=== PATIENT | female | born 1970 ===

== ENCOUNTER 2017-08-05 22:43 | Observation (INO) | payer MEDICAID ==
[2017-08-05 22:54] VITALS: BMI 25.4
--- NOTE | 2017-08-05 23:01 | ED PDOC ---
Arrival/HPI - General Chief Complaint: Syncope Time Seen by Provider: 08/05/17 22:48 Historian: Patient - History of Present Illness Narrative History of Present Illness (Text): 08/05/17 23:00 Nuzhat Sanches is a 46 year old female, whose past medical history includes hypertension, who presents to the Emergency department brought in by EMS accompanied by family status post syncopal episodes prior to arrival. Patient states she went to bathroom, began feeling dizzy when she got up from the toilet, and lost consciousness. states patient fell to the ground and was unconscious for a few minutes. Patient reports she recently underwent a procedure to "remove silicone" from her vagina earlier today. Patient denies any fever, chills, chest pain, shortness of breath, nausea, vomiting, diarrhea, urinary symptoms, back pain, neck pain, headache, focal neurological deficits, or any other complaints. Symptom Onset: Gradual Symptom Course: Unchanged Activities at Onset: Light Context: Home Past Medical History - Provider Review Nursing Documentation Reviewed: Yes - Pulmonary Hx Respiratory Disorders: No - Neurological Hx Dizziness: Yes Hx Syncope: Yes - HEENT Hx HEENT Disorder: No - Renal Hx Renal Disorder: No - Endocrine/Metabolic Hx Endocrine Disorders: No - Hematological/Oncological Hx Blood Disorders: No - Integumentary Hx Dermatological Disorder: Yes - Musculoskeletal/Rheumatological Hx Musculoskeletal Disorders: No - Gastrointestinal Hx Gastrointestinal Disorders: No - Genitourinary/Gynecological Hx Genitourinary Disorders: No - Psychiatric Hx Psychophysiologic Disorder: No Hx Substance Use: No - Surgical History Other/Comment: abdominoplasty liposuction. Silicone Implant/Removal (buttocks and vagina) - Anesthesia Hx Anesthesia: Yes Hx Anesthesia Reactions: No Hx Malignant Hyperthermia: No Family/Social History - Physician Review Nursing Documentation Reviewed: Yes Family/Social History: Unknown Family HX Smoking Status: Never Smoked Hx Alcohol Use: Yes Frequency of alcohol use: Socially Hx Substance Use: No Allergies/Home Meds Allergies/Adverse Reactions: Allergies Sulfa (Sulfonamide Antibiotics) Allergy (Verified 11/07/16 13:23) RASH Home Medications: Home Meds Medication Instructions Recorded Confirmed Aspirin [Aspirin Chewable] 81 mg PO DAILY 08/05/17 08/05/17 Cephalexin [Keflex] 500 mg PO QID 08/05/17 08/05/17 Review of Systems - Physician Review All systems were reviewed & negative as marked: Yes - Review of Systems Constitutional: Normal Eyes: Normal ENT: Normal Respiratory: Normal. absent: SOB, Cough Cardiovascular: Syncope. absent: Chest Pain Gastrointestinal: Normal. absent: Abdominal Pain, Diarrhea, Nausea Genitourinary Female: Normal. absent: Dysuria, Frequency, Hematuria, Urine Output Changes Musculoskeletal: Normal. absent: Back Pain, Neck Pain Skin: Normal. absent: Rash Neurological: Dizziness. absent: Headache Endocrine: Normal Hemo/Lymphatic: Normal Psychiatric: Normal Physical Exam Vital Signs Reviewed: Yes Vital Signs Temp Pulse Pulse Resp BP Pulse Ox 08/06/17 04:22 98.3 F 81 80 22 101/68 08/06/17 03:30 99 08/06/17 03:03 98.1 F 98 H 18 112/72 100 08/05/17 22:54 99.1 F 75 19 116/84 99 Temperature: Afebrile Blood Pressure: Normal Pulse: Regular Respiratory Rate: Normal Appearance: Positive for: Well-Appearing, Non-Toxic, Comfortable Pain Distress: None Mental Status: Positive for: Alert and Oriented X 3 - Systems Exam Head: Present: Atraumatic, Normocephalic Pupils: Present: PERRL Extroacular Muscles: Present: EOMI Conjunctiva: Present: Normal Mouth: Present: Moist Mucous Membranes Neck: Present: Normal Range of Motion Respiratory/Chest: Present: Clear to Auscultation, Good Air Exchange. No: Respiratory Distress, Accessory Muscle Use Cardiovascular: Present: Regular Rate and Rhythm, Normal S1, S2. No: Murmurs Abdomen: No: Tenderness, Distention, Peritoneal Signs Back: Present: Normal Inspection Upper Extremity: Present: Normal Inspection. No: Cyanosis, Edema Lower Extremity: Present: Normal Inspection. No: Edema Neurological: Present: GCS=15, CN II-XII Intact, Speech Normal Skin: Present: Warm, Dry, Normal Color. No: Rashes Psychiatric: Present: Alert, Oriented x 3, Normal Insight, Normal Concentration Medical Decision Making ED Course and Treatment: 08/05/17 23:00 Impression: 46 year old female complaining of a syncopal episode prior to arrival. Differential Diagnosis included but are not limited to: syncope Plan: -- CT Head w/o contrast -- EKG -- Labs, cardiac enzymes, TSH, alcohol level, blood cultures -- Urinalysis, urine cultures, urine durg screen -- Percocet -- Reassess and disposition Progress Notes: Reviewed EKG, NSR at [address]-segment elevations or depressions, no T-wave inversions, normal intervals. 08/06/17 00:43 CT Head shows/: Brain: No intracranial hemorrhage. No mass. No definite edema. Ventricles: No hydrocephalus. Bones/joints: No acute fracture. Soft tissues: Unremarkable. Sinuses: No acute sinusitis. Mastoid air cells: No mastoid effusion. Orbits: Unremarkable as visualized. IMPRESSION: 1. No definite acute intracranial abnormality. 08/06/17 01:31 Case discussed with biomedical field service engineer motion picture scene builder, who is aware and agrees with plan. 08/06/17 01:[address] Hurley, who is aware and agrees with plan. Accepts pt in to hospitalist service. - Lab Interpretations Microbiology Results: Microbiology Results 08/05/17 23:00 Blood-Venous Blood Culture - Preliminary NO GROWTH AFTER 3 DAYS 08/05/17 23:23 Blood-Venous Blood Culture - Preliminary NO GROWTH AFTER 3 DAYS 08/06/17 00:50 Urine,Clean Catch Urine Culture - Final No Growth (<1,000 CFU/ML) Lab Results: 08/05/17 23:13 08/05/17 23:13 Lab Results 08/06/17 00:50: Urine Opiates Screen Positive H, Urine Methadone Screen Negative , Ur Barbiturates Screen Negative, Ur Phencyclidine Scrn Negative, Ur Amphetamines Screen Negative, U Benzodiazepines Scrn Positive H, U Oth Cocaine Metabols Negative, U Cannabinoids Screen Negative 08/06/17 00:50: Urine Color Yellow, Urine Appearance Cloudy, Urine pH 6.0, Ur Specific Henning 1.025, Urine Protein 100 H, Urine Glucose (UA) Negative, Urine Ketones Negative, Urine Blood Large H, Urine Nitrate Negative, Urine Bilirubin Negative, Urine Urobilinogen 0.2, Ur Leukocyte Esterase Small H, Urine RBC 10 - 15, Urine WBC 2 - 5, Ur Epithelial Cells 3 - 4, Urine Bacteria Few 08/05/17 23:13: TSH 3rd Generation 1.36, Alcohol, Quantitative < 10 08/05/17 23:13: Sodium 141, Potassium 4.2, Chloride 105, Carbon Dioxide 27, Anion Gap 13, BUN 12, Creatinine 0.7, Est GFR ( Amer) > 60, Est GFR (Non- Af Amer) > 60, Random Glucose 140 H, Calcium 8.6, Phosphorus 3.7, Magnesium 1.6 L, Total Bilirubin 0.2, AST 27, ALT 26, Alkaline Phosphatase 68, Lactate Dehydrogenase 555, Total Creatine Kinase 113, Troponin I < 0.01, Total Protein 6.6, Albumin 3.6, Globulin 3.0, Albumin/Globulin Ratio 1.2 08/05/17 23:13: PT 12.9 H, INR 1.13 H, APTT 25.1 08/05/17 23:13: WBC 11.7 H, RBC 4.25, Hgb 11.9 L, Hct 36.6, MCV 86.1, MCH 28.0, MCHC 32.5, RDW 14.0, Plt Count 237, MPV 11.1 H, Gran % 88.3 H, Lymph % (Auto) 6.7 L, Murray % (Auto) 4.9, Eos % (Auto) 0.0 L, Baso % (Auto) 0.1, Gran # 10.36 H , Lymph # (Auto) 0.8 L, Murray # (Auto) 0.6, Eos # (Auto) 0.0, Baso # (Auto) 0.01 I have reviewed the lab results: Yes - RAD Interpretation Radiology Orders: 08/05/17 23:00 HEAD W/O CONTRAST [CT] Stat Corrections Unit Supervisor: Radiologist - EKG Interpretation Interpreted by ED Physician: Yes Type: 12 lead EKG - Medication Orders Current Medication Orders: Discontinued Medications Aspirin (Aspirin Chewable) 81 mg PO DAILY [facility] Last Admin: 08/06/17 09:38 Dose: 81 mg Cephalexin Monohydrate (Keflex) 500 mg PO QID [facility] PRN Reason: Protocol Last Admin: 08/06/17 14:00 Dose: 500 mg Magnesium Sulfate/Dextrose (Magnesium Sulfate 1 Gm/100 Ml D5w) 1 gm in 100 mls @ 100 mls/hr IVPB Q1H ENRIQUETA Stop: 08/06/17 04:59 Last Admin: 08/06/17 06:00 Dose: 100 mls/hr eMAR Start Stop Document 08/06/17 06:00 SRE (Rec: 08/06/17 06:00 SRE [id number]) Intravenous Solution Start Date 08/06/17 Start Time 06:00 Ibuprofen (Motrin Tab) 600 mg PO STAT STA Stop: 08/06/17 04:11 Last Admin: 08/06/17 04:44 Dose: 600 mg MAR Pain/Vitals Document 08/06/17 04:44 SBO (Rec: 08/06/17 04:45 SBO [id number]) Pain Reassessment Is This A Pain ReAssessment? Yes Sleep Is patient sleeping during reassessment? No Presence of Pain Presence of Pain Yes Pain Scale Used Pain Scale Used Numeric Location Pain Location Body Site vaginal Description Intermittent Intensity 7 Oxycodone/Acetaminophen (Percocet 5/325 Mg Tab) 1 tab PO STAT STA Stop: 08/05/17 23:15 Last Admin: 08/05/17 23:24 Dose: 1 tab MAR Pain Assessment Document 08/05/17 23:24 SS (Rec: 08/05/17 23:24 SS [id number]) Pain Reassessment Is this a pain reassessment? Yes Presence of Pain Presence of Pain Yes Pain Scale Used Pain Scale Used Numeric Description Description Constant Intensity of Pain at present 10 - Scribe Statement The provider has reviewed the documentation as recorded by the Darwin Ordonez Provider Scribe Attestation: All medical record entries made by the Scribcarl were at my direction and personally dictated by me. I have reviewed the chart and agree that the record accurately reflects my personal performance of the history, physical exam, medical decision making, and the department course for this patient. I have also personally directed, reviewed, and agree with the discharge instructions and disposition. Disposition/Present on Arrival - Present on Arrival Any Indicators Present on Arrival: No History of DVT/PE: No History of Uncontrolled Diabetes: No Urinary Catheter: No History of Decub. Ulcer: No History Surgical Site Infection Following: None - Disposition Have Diagnosis and Disposition been Completed?: Yes Diagnosis: Syncope Disposition: HOSPITALIZED Disposition Time: 01:35 Condition: GOOD
[2017-08-05] MEDS ORDERED: Oxycodone/Acetaminophen 5/325 mg Tab PO STA (23:14)
[2017-08-05 23:17] LABS: BASO # 0.01 K/mm3 (0.0-2.0); BASO % 0.1 % (0.0-3.0); GRAN # 10.36 (1.4-6.5); GRAN % 88.3 % (50.0-68.0); HEMOGLOBIN 11.9 g/dL (12.0-16.0); LYMPH # 0.8 (1.2-3.4); LYMPH % 6.7 % (22.0-35.0); MEAN CELL VOLUME 86.1 fl (80.0-105.0); MEAN CORPUSCULAR HGB CONC 32.5 g/dl (31.0-37.0); MEAN PLATELET VOLUME 11.1 fl (7.0-11.0); MONO # 0.6 (0.1-0.6); MONO % 4.9 % (1.0-6.0); RBC 4.25 10^6/uL (3.5-6.1); WHITE BLOOD COUNT 11.7 10^3/ul (4.5-11.0)
[2017-08-05 23:29] LABS: ALB/GLOB RATIO 1.2 (1.1-1.8); ALBUMIN 3.6 g/dL (3.0-4.8); ALT/SGPT 26 U/L (7-56); AST/SGOT 27 U/L (14-36); BLOOD UREA NITROGEN 12 mg/dL (7-21); CALCIUM 8.6 mg/dL (8.4-10.5); GFR AFRICAN-AMERICAN > 60; GFR NON-AFRICAN AMERICAN > 60; INR 1.13 (0.93-1.08); PARTIAL THROMBOPLASTIN TIME 25.1 Seconds (25.1-36.5); PROTHROMBIN TIME 12.9 SECONDS (9.4-12.5)
[2017-08-05 23:39] LABS: TROPONIN I < 0.01 ng/mL
--- NOTE | 2017-08-06 00:42 | CT ---
EXAM: CT Head Without Intravenous Contrast CLINICAL HISTORY: 46 years old, female; Signs and symptoms; Syncope and collapse TECHNIQUE: Axial computed tomography images of the head/brain without intravenous contrast. All CT scans at this facility use one or more dose reduction techniques, viz.: automated exposure control; ma/kV adjustment per patient size (including targeted exams where dose is matched to indication; i.e. head); or iterative reconstruction technique. Coronal and sagittal reformatted images were created and reviewed. COMPARISON: No relevant prior studies available. FINDINGS: Brain: No intracranial hemorrhage. No mass. No definite edema. Ventricles: No hydrocephalus. Bones/joints: No acute fracture. Soft tissues: Unremarkable. Sinuses: No acute sinusitis. Mastoid air cells: No mastoid effusion. Orbits: Unremarkable as visualized. IMPRESSION: 1. No definite acute intracranial abnormality.
[2017-08-06 01:14] LABS: URINE BILIRUBIN NEGATIVE (NEGATIVE); URINE BLOOD LARGE (NEGATIVE); URINE GLUCOSE (UA) NEGATIVE (NEGATIVE); URINE LEUKOCYTE ESTERASE SMALL Leu/uL (NEGATIVE); URINE PROTEIN 100 mg/dL (<30 mg/dL); URINE UROBILINOGEN 0.2 E.U./dL (<1 E.U./dL)
[2017-08-06 01:19] LABS: URINE APPEARANCE CLOUDY (CLEAR); URINE COLOR YELLOW (YELLOW)
[2017-08-06 01:25] LABS: URINE BACTERIA FEW (NEG)
[2017-08-06 01:39] LABS: BARBITURATES, UR NEGATIVE (NEGATIVE); BENZODIAZEPINES, UR POSITIVE (NEGATIVE); OPIATES, UR POSITIVE (NEGATIVE); PHENCYCLIDINE, UR NEGATIVE (NEGATIVE)
--- NOTE | 2017-08-06 02:28 | CP.PCM.HP ---
<Zaki Shaw - Last Filed: 08/06/17 03:09> History of Present Illness - History of Present Illness History of Present Illness: PGY-1 H&P for Dr. Hurley CC:"I passed out" This is a 46 year old female with PMHx HTN who presented after a syncopal episode. Patient states that she had surgery yesterday where silicone was "removed from the vagina." Patient states that she had silicone injections in the buttocks 14 years ago which have migrated towards the vagina recently. Patient states that she could not urinate after the procedure and was sitting in her bathtub. Patient states that due to her small bathroom which traps heat, she felt hot and walked to the kitchen afterwards. At that point, she felt a numbness sensation which started on top of her head and travelled down to the feet. Patient states that she felt cold afterwards and collapsed. Per patient, her partner caught her before she fell and then called the ambulance. Patient is unaware how long she was unconscious for. Patient states that she had a similar syncopal episode in the past in the bathroom in the hospital which also happened to be after another surgical procedure. Patient was able to urinate after coming to the ED. She denies any symptoms at this time including fever, chills, lightheadedness, dizziness, chest pain, dyspnea, abdominal pain, dysuria. Patient is currently on her period. PMHx: HTN PSHx: Tummy tuck and liposuction 10 years prior, tubal ligation, silicone injections in the buttocks 14 years ago, "silicone removal from the vagina" yesterday Allergies: Latex gloves--itchiness Social: Denies tobacco, alcohol, drugs. Lives with her partner and her daughter. 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 Lindsey Brian Home meds: ASA 81 mg daily, does not recall the one blood pressure medication that she is taking Present on Admission - Present on Admission Any Indicators Present on Admission: No Review of Systems - Constitutional Constitutional: absent: Chills, Fever - EENT Eyes: absent: Change in Vision Ears: absent: Decreased Hearing Nose/Mouth/Throat: absent: Nasal Congestion - Cardiovascular Cardiovascular: absent: Chest Pain - Respiratory Respiratory: absent: Dyspnea - Gastrointestinal Gastrointestinal: absent: Abdominal Pain, Constipation, Diarrhea, Nausea, Vomiting - Genitourinary Genitourinary: Difficulty Urinating (resolved). absent: Dysuria - Reproductive: Female Reproductive:Female: Currently Menstual - Menstruation Menstruation: Currently Menstual - Musculoskeletal Musculoskeletal: absent: Back Pain - Integumentary Integumentary: absent: Rash - Neurological Neurological: Dizziness (resolved), Syncope (resolved) - Psychiatric Psychiatric: absent: Anxiety - Endocrine Endocrine: absent: Palpitations Past Patient History - Past Medical History & Family History Past Medical History?: No - Past Social History Smoking Status: Never Smoked - PULMONARY Hx Respiratory Disorders: No - NEUROLOGICAL Hx Dizziness: Yes Hx Syncope: Yes - HEENT Hx HEENT Problems: No - RENAL Hx Chronic Kidney Disease: No - ENDOCRINE/METABOLIC Hx Endocrine Disorders: No - HEMATOLOGICAL/ONCOLOGICAL Hx Blood Disorders: No - INTEGUMENTARY Hx Dermatological Problems: Yes - MUSCULOSKELETAL/RHEUMATOLOGICAL Hx Musculoskeletal Disorders: No - GASTROINTESTINAL Hx Gastrointestinal Disorders: No - GENITOURINARY/GYNECOLOGICAL Hx Genitourinary Disorders: No - PSYCHIATRIC Hx Psychophysiologic Disorder: No Hx Substance Use: No - SURGICAL HISTORY Other/Comment: abdominoplasty liposuction. Silicone Implant/Removal (buttocks and vagina) - ANESTHESIA Hx Anesthesia: Yes Hx Anesthesia Reactions: No Hx Malignant Hyperthermia: No Meds Allergies/Adverse Reactions: Allergies Allergy/AdvReac Type Severity Reaction Status Date / Time Penicillins Allergy Intermediate RASH Verified 11/07/16 13:23 Sulfa (Sulfonamide Allergy RASH Verified 11/07/16 13:23 Antibiotics) Physical Exam - Constitutional Appears: No Acute Distress Additional comments: Examined in the presence of female nurse Pallavi in the emergency department - Head Exam Head Exam: ATRAUMATIC, NORMOCEPHALIC - Eye Exam Eye Exam: EOMI, PERRL - ENT Exam ENT Exam: Mucous Membranes Moist - Neck Exam Additional comments: No carotid bruits - Respiratory Exam Respiratory Exam: Clear to Auscultation Bilateral, NORMAL BREATHING PATTERN. absent: Rales, Rhonchi, Wheezes - Cardiovascular Exam Cardiovascular Exam: REGULAR RHYTHM, +S1, +S2. absent: Diastolic murmur, JVD, Systolic Murmur - GI/Abdominal Exam GI & Abdominal Exam: Normal Bowel Sounds, Soft. absent: Distended, Tenderness Additional comments: 2 MEAGAN drains coming from the pelvic regions with serosanguinous drainage - Exam Additional comments: Patient refused pelvic exam - Extremities Exam Extremities exam: Negative for: pedal edema - Neurological Exam Neurological exam: Alert, CN II-XII Intact, Oriented x3 - Psychiatric Exam Psychiatric exam: Normal Affect, Normal Mood - Skin Skin Exam: Dry, Warm - Additional Findings Additional findings: Orthostatic Vitals: Flat: 108/69 with HR 80 Sittin/98 with HR 88 Standin/72 with HR 88 Results - Vital Signs Recent Vital Signs: Last Vital Signs Temp 99.1 F 08/05/17 22:54 Pulse 75 08/05/17 22:54 Resp 19 08/05/17 22:54 BP 116/84 08/05/17 22:54 Pulse Ox 99 08/05/17 22:54 - Labs Result Diagrams: 08/05/17 23:13 08/05/17 23:13 Assessment & Plan - Assessment and Plan (Free Text) Assessment: This is a 46 year old female with PMHx HTN who presented after a syncopal episode, likely vasovagal in nature. Plan: 1. Syncope, likely vasovagal -initial troponin within normal limit -initial EKG shows normal sinus rhythm -f/u serial troponin and EKG -Head CT negative for acute pathologies -cardiology consulted -neurology consulted -echocardiogram ordered -orthostatic vitals were taken--did not show orthostatic changes 2. Family History of Colon CA -patient counselled on the need for colonoscopy for prevention screening Discussed with Dr. Mei Shaw PGY-1 <Piedad Hurley - Last Filed: 08/06/17 04:10> Results - Vital Signs Recent Vital Signs: Last Vital Signs Temp 98.1 F 08/06/17 03:03 Pulse 98 H 08/06/17 03:03 Resp 18 08/06/17 03:03 BP 112/72 08/06/17 03:03 Pulse Ox 100 08/06/17 03:03 - Labs Result Diagrams: 08/05/17 23:13 08/05/17 23:13 Attending/Attestation - Attestation I have personally seen and examined this patient.: Yes I have fully participated in the care of the patient.: Yes I have reviewed all pertinent clinical information: Yes Notes (Text): 08/06/17 04:09 Patient was seen when she was in room # 9 in the ER. Agree with documentation of history , physical examination, assessment and plan.
[2017-08-06] MEDS: Magnesium Sulfate 1 gm in D5W 1 GM/100 ML BAG IVPB SCH ×2 (04:43→06:00)
[2017-08-06 04:47] VITALS: O2SAT 99
[2017-08-06 06:40] LABS: BASO # 0.02 K/mm3 (0.0-2.0); BASO % 0.3 % (0.0-3.0); EOS # 0.1 (0.0-0.7); EOS % 0.6 % (1.5-5.0); GRAN # 5.63 (1.4-6.5); GRAN % 72.4 % (50.0-68.0); LYMPH # 1.5 (1.2-3.4); LYMPH % 19.8 % (22.0-35.0); MEAN CORPUSCULAR HEMOGLOBIN 27.6 pg (25.0-35.0); MEAN CORPUSCULAR HGB CONC 32.1 g/dl (31.0-37.0); MEAN PLATELET VOLUME 11.6 fl (7.0-11.0); MONO # 0.5 (0.1-0.6); MONO % 6.9 % (1.0-6.0); RBC 3.51 10^6/uL (3.5-6.1); RED CELL DISTRIBUTION WIDTH 14.1 % (11.5-14.5); WHITE BLOOD COUNT 7.8 10^3/ul (4.5-11.0)
[2017-08-06 07:08] LABS: ALBUMIN 2.9 g/dL (3.0-4.8); ALT/SGPT 23 U/L (7-56); AST/SGOT 25 U/L (14-36); BLOOD UREA NITROGEN 15 mg/dL (7-21); CALCIUM 8.2 mg/dL (8.4-10.5); GFR AFRICAN-AMERICAN > 60; GFR NON-AFRICAN AMERICAN > 60
[2017-08-06 07:10] LABS: TROPONIN I < 0.01 ng/mL
[2017-08-06 07:13] LABS: HEMOGLOBIN 9.7 g/dL (12.0-16.0)
--- NOTE | 2017-08-06 11:51 | US ---
PROCEDURE: Bilateral carotid artery duplex ultrasound HISTORY: Carotid stenosis syncope PHYSICIAN(S): Cristopher Sloan MD. TECHNIQUE: Duplex sonography and color-flow Doppler were used to evaluate the carotid bifurcations and limited segments of the vertebral arteries bilaterally. FINDINGS: There is mild intimal- medial thickening noted at the carotid bifurcations bilaterally. The peak systolic velocity in the proximal right internal carotid artery is 89 cm/sec. This corresponds to a 0-19 percent proximal right ICA stenosis. Normal systolic velocities are noted in the proximal right external carotid artery. There is antegrade flow in the right vertebral artery. The peak systolic velocity in the proximal left internal carotid artery is 87 cm/sec. This corresponds to a 0-19 percent proximal left ICA stenosis. Normal systolic velocities are noted in the proximal left external carotid artery. There is antegrade flow in the left vertebral artery. IMPRESSION: 1. Bilateral 0-19 percent proximal ICA stenoses. 2. Antegrade flow in both vertebral arteries.
--- NOTE | 2017-08-06 12:03 | CP.PCM.CON ---
History of Present Illness - History of Present Illness History of Present Illness: 46 yr old woman who has had multiple cosmetic surgeries and is consulted for syncope. Miss Sanches has a gluteus summer implant that apparently dislocated and slid into her vaginal canal and was removed. She became diaphoretic yesterday after being on the toilet and and lost consciousness for several seconds with no chest pain, no headache, no weakness, no confusion. She denies tinnitus, hearing loss or any prior spells. PMH/PSH: none FH/SH: , no tobacco, occasional etoh. All: nkda. on exam: Normal neurological examination. no deficits noted. Speech fluent. Past Patient History - Past Medical History & Family History Past Medical History?: No - Past Social History Smoking Status: Never Smoked - CARDIAC Hx Cardiac Disorders: Yes Hx Angina: No Hx Cardia Arrhythmia: No Hx Circulatory Problems: No Hx Congestive Heart Failure: No Hx Heart Murmur: No Hx Heart Transplant: No Hx Hypercholesterolemia: No Hx Hypertension: Yes Hx Internal Defibrillator: No Hx Mitral Valve Prolapse: No Hx Pacemaker: No Hx Peripheral Edema: No Hx Peripheral Vascular Disease: No - PULMONARY Hx Respiratory Disorders: No Hx Asthma: No Hx Bronchitis: No Hx Chronic Obstructive Pulmonary Disease (COPD): No Hx Emphysema: No Hx Pneumonia: No Hx Respiratory Aspiration: No Hx Respiratory Tract Infection: No Hx Sleep Apnea: No Hx Tuberculosis: No - NEUROLOGICAL Hx Neurological Disorder: No Hx Alzheimer's Disease: No HX Cerebrovascular Accident: No Hx Dementia: No Hx Dizziness: No Hx Meningitis: No Hx Migraine: No Hx Parkinson's Disease: No Hx Seizures: No Hx Transient Ischemic Attacks (TIA): No - HEENT Hx HEENT Problems: No Hx Blind: No Hx Cataracts: No Hx Deafness: No Hx Difficulty Chewing: No Hx Epistaxis: No Hx Glaucoma: No Hx Macular Degeneration: No - RENAL Hx Chronic Kidney Disease: No Hx Dialysis: No Hx Kidney Stones: Yes Hx Neurogenic Bladder: No Hx Pyelonephritis: No Hx Renal (Kidney) Cancer: No Hx Renal Failure: No - ENDOCRINE/METABOLIC Hx Endocrine Disorders: No Hx Adrenal Cancer: No Hx Diabetes Insipidus: No Hx Diabetes Mellitus Type 1: No Hx Diabetes Mellitus Type 2: No Hx Hyperthyroidism: No Hx Hypothyroidism: No Hx Systemic Lupus Erythematosus: No - HEMATOLOGICAL/ONCOLOGICAL Hx Blood Disorders: No Hx AIDS: No Hx Anemia: No Hx Cancer: No Hx Chemotherapy: No Hx Cirrhosis: No Hx Hemophilia: No Hx Hepatitis A: No Hx Hepatitis B: No Hx Hepatitis C: No Hx Human Immunodeficiency Virus (HIV): No Hx Metastesis: No Hx Shingles: No Hx Sickle Cell Disease: No Hx Unexplained Bleeding: No - INTEGUMENTARY Hx Dermatological Problems: No Hx Basil Cell: No Hx Eczema: No Hx Melanoma: No Hx Psoriasis: No Hx Squamous Cell: No - MUSCULOSKELETAL/RHEUMATOLOGICAL Hx Musculoskeletal Disorders: No Hx Arthritis: No Hx Back Pain: No Hx Degenerative Joint Disease: No Hx Falls: No Hx Fractures: No Hx Gout: No Hx Herniated Disk: No Hx Myasthenia Gravis: No Hx Osteoarthritis: No Hx Osteomyelitis: No Hx Osteoporosis: No Hx Rhabdomyolysis: No Hx Spinal Stenosis: No Hx Unsteady Gait: No - GASTROINTESTINAL Hx Gastrointestinal Disorders: No Hx Colostomy: No Hx Crohn's Disease: No Hx Diverticulitis: No Hx Gall Bladder Disease: No Hx Gastroesophageal Reflux: No Hx Ileostomy: No Hx Liver Failure: No Hx Pancreatitis: No HX Swallowing Problems: No Hx Ulcer: No - GENITOURINARY/GYNECOLOGICAL Hx Genitourinary Disorders: Yes Hx Hematuria: No Hx Incontinence: No Hx Sexually Transmitted Disorders: No Hx Urinary Tract Infection: No - PSYCHIATRIC Hx Psychophysiologic Disorder: No Hx Anxiety: No Hx Bipolar Disorder: No Hx Depression: No Hx Emotional Abuse: No Hx Hallucinations: No Hx Panic Symptoms: No Hx Paranoia: No Hx Post Traumatic Stress Disorder: No Hx Psychosis: No Hx Physical Abuse: No Hx Schizophrenia: No Hx Sexual Abuse: No Hx Substance Use: No - SURGICAL HISTORY Hx Surgeries: Yes ("silicone removed from vagina" 08/05/17) Hx Amputation: No Hx Appendectomy: No Hx Cardiac Catheterization: No Hx Cholecystectomy: No Hx Coronary Stent: No Hx Gastric Bypass Surgery: No Hx Hysterectomy: No Hx Joint Replacement: No Hx Kidney Transplant: No Hx Liver Transplant: No Hx Mastectomy: No Hx Musculoskeletal Surgery: No Hx Open Heart Surgery: No Hx Orthopedic Surgery: No Hx Splenectomy: No Hx Valve Replacement: No Other/Comment: Tubal ligation - ANESTHESIA Hx Anesthesia: Yes Hx Anesthesia Reactions: No Hx Malignant Hyperthermia: No Meds Allergies/Adverse Reactions: Allergies Allergy/AdvReac Type Severity Reaction Status Date / Time Sulfa (Sulfonamide Allergy RASH Verified 11/07/16 13:23 Antibiotics) - Medications Medications: Current Medications Aspirin (Aspirin Chewable) 81 mg PO DAILY [facility] Last Admin: 08/06/17 09:38 Dose: 81 mg Cephalexin Monohydrate (Keflex) 500 mg PO QID [facility] PRN Reason: Protocol Last Admin: 08/06/17 09:38 Dose: 500 mg Results - Vital Signs Recent Vital Signs: Last Vital Signs Temp 98.3 F 08/06/17 05:44 Pulse 81 08/06/17 10:00 Resp 22 08/06/17 05:44 BP 101/65 08/06/17 05:44 Pulse Ox 99 08/06/17 05:44 - Labs Result Diagrams: 08/06/17 05:30 08/06/17 05:30 Labs: Laboratory Results - last 24 hr 08/06/17 08/06/17 05:30 05:30 WBC 7.8 D RBC 3.51 Hgb 9.7 L D Hct 30.2 L MCV 86.0 MCH 27.6 MCHC 32.1 RDW 14.1 Plt Count 212 MPV 11.6 H Gran % 72.4 H Lymph % (Auto) 19.8 L [place] % (Auto) 6.9 H Eos % (Auto) 0.6 L Baso % (Auto) 0.3 Gran # 5.63 Lymph # (Auto) 1.5 Bell # (Auto) 0.5 Eos # (Auto) 0.1 Baso # (Auto) 0.02 Sodium 139 Potassium 3.9 Chloride 105 Carbon Dioxide 28 Anion Gap 10 BUN 15 Creatinine 0.7 Est GFR ( Amer) > 60 Est GFR (Non-Af Amer) > 60 Random Glucose 108 Calcium 8.2 L Phosphorus 3.1 Magnesium 1.9 Total Bilirubin 0.1 L AST 25 ALT 23 Alkaline Phosphatase 63 Troponin I < 0.01 Total Protein 5.7 L Albumin 2.9 L Globulin 2.8 Albumin/Globulin Ratio 1.0 L - Imaging and Cardiology CT scan - head Status: Image reviewed by me, Report reviewed by me (ct head is normal. Carotid artery ultrasound shows minimal 0-19% stenosis. ) Assessment & Plan - Assessment and Plan (Free Text) Assessment: 46 yr old woman with syncopal spell that is vasovagal in nature, with normal neurological examination. A/p: No further neurological intervention at this time. PLease reconsult prn. Thank you DR. Marie
[2017-08-06 12:35] VITALS: BP 104/65; PULSE 90; TEMP 97.1
--- NOTE | 2017-08-06 12:45 | CARD ---
APPROVED REPORT EKG Measurement Heart [id number] <Conclusion> Normal sinus rhythm Normal ECG
[2017-08-06 12:48] VITALS: RESP 18
--- NOTE | 2017-08-06 13:00 | CARD ---
APPROVED REPORT EKG Measurement Heart [id number] <Conclusion> Normal sinus rhythm Normal ECG No change
--- NOTE | 2017-08-06 15:37 | CP.PCM.DIS ---
<Al Nelson - Last Filed: 08/07/17 04:54> Provider - Provider Date of Admission: 08/06/17 01:31 Attending physician: Naomy Osorio MD Primary care physician: Lindsey Wilson MD Consults: Cardiology: Dr. Garrido Neurology: Dr. Marie Time Spent in preparation of Discharge (in minutes): 40 Diagnosis - Discharge Diagnosis (1) Syncope Status: Acute Priority: High (2) Vasovagal episode Status: Acute Priority: Medium (3) Anemia Status: Acute Priority: Medium Hospital Course - Lab Results Lab Results: Most Recent Lab Values WBC 7.8 10^3/ul (4.5-11.0) D 08/06/17 05:30 RBC 3.51 10^6/uL (3.5-6.1) 08/06/17 05:30 Hgb 9.7 g/dL (12.0-16.0) L D 08/06/17 05:30 Hct 30.2 % (36.0-48.0) L 08/06/17 05:30 MCV 86.0 fl (80.0-105.0) 08/06/17 05:30 MCH 27.6 pg (25.0-35.0) 08/06/17 05:30 MCHC 32.1 g/dl (31.0-37.0) 08/06/17 05:30 RDW 14.1 % (11.5-14.5) 08/06/17 05:30 Plt Count 212 10^3/uL (120.0-450.0) 08/06/17 05:30 MPV 11.6 fl (7.0-11.0) H 08/06/17 05:30 Gran % 72.4 % (50.0-68.0) H 08/06/17 05:30 Lymph % (Auto) 19.8 % (22.0-35.0) L 08/06/17 05:30 [place] % (Auto) 6.9 % (1.0-6.0) H 08/06/17 05:30 Eos % (Auto) 0.6 % (1.5-5.0) L 08/06/17 05:30 Baso % (Auto) 0.3 % (0.0-3.0) 08/06/17 05:30 Gran # 5.63 (1.4-6.5) 08/06/17 05:30 Lymph # (Auto) 1.5 (1.2-3.4) 08/06/17 05:30 [place] # (Auto) 0.5 (0.1-0.6) 08/06/17 05:30 Eos # (Auto) 0.1 (0.0-0.7) 08/06/17 05:30 Baso # (Auto) 0.02 K/mm3 (0.0-2.0) 08/06/17 05:30 PT 12.9 SECONDS (9.4-12.5) H 08/05/17 23:13 INR 1.13 (0.93-1.08) H 08/05/17 23:13 APTT 25.1 Seconds (25.1-36.5) 08/05/17 23:13 Sodium 139 mmol/L (132-148) 08/06/17 05:30 Potassium 3.9 mmol/L (3.6-5.0) 08/06/17 05:30 Chloride 105 mmol/L (98-107) 08/06/17 05:30 Carbon Dioxide 28 mmol/L (21-33) 08/06/17 05:30 Anion Gap 10 (10-20) 08/06/17 05:30 BUN 15 mg/dL (7-21) 08/06/17 05:30 Creatinine 0.7 mg/dl (0.7-1.2) 08/06/17 05:30 Est GFR ( Amer) > 60 08/06/17 05:30 Est GFR (Non-Af Amer) > 60 08/06/17 05:30 Random Glucose 108 mg/dL (70-110) 08/06/17 05:30 Calcium 8.2 mg/dL (8.4-10.5) L 08/06/17 05:30 Phosphorus 3.1 mg/dL (2.5-4.5) 08/06/17 05:30 Magnesium 1.9 mg/dL (1.7-2.2) 08/06/17 05:30 Total Bilirubin 0.1 mg/dL (0.2-1.3) L 08/06/17 05:30 AST 25 U/L (14-36) 08/06/17 05:30 ALT 23 U/L (7-56) 08/06/17 05:30 Alkaline Phosphatase 63 U/L (38-126) 08/06/17 05:30 Lactate Dehydrogenase 555 U/L (333-699) 08/05/17 23:13 Total Creatine Kinase 113 U/L (35-230) 08/05/17 23:13 Troponin I < 0.01 ng/mL 08/06/17 12:45 Total Protein 5.7 g/dL (5.8-8.3) L 08/06/17 05:30 Albumin 2.9 g/dL (3.0-4.8) L 08/06/17 05:30 Globulin 2.8 gm/dL 08/06/17 05:30 Albumin/Globulin Ratio 1.0 (1.1-1.8) L 08/06/17 05:30 TSH 3rd Generation 1.36 mIU/mL (0.46-4.68) 08/05/17 23:13 Urine Color Yellow (YELLOW) 08/06/17 00:50 Urine Appearance Cloudy (CLEAR) 08/06/17 00:50 Urine pH 6.0 (4.7-8.0) 08/06/17 00:50 Ur Specific [place] 1.025 (1.005-1.035) 08/06/17 00:50 Urine Protein 100 mg/dL (<30 mg/dL) H 08/06/17 00:50 Urine Glucose (UA) Negative mg/dL (NEGATIVE) 08/06/17 00:50 Urine Ketones Negative mg/dL (NEGATIVE) 08/06/17 00:50 Urine Blood Large (NEGATIVE) H 08/06/17 00:50 Urine Nitrate Negative (NEGATIVE) 08/06/17 00:50 Urine Bilirubin Negative (NEGATIVE) 08/06/17 00:50 Urine Urobilinogen 0.2 E.U./dL (<1 E.U./dL) 08/06/17 00:50 Ur Leukocyte Esterase Small Devin/uL (NEGATIVE) H 08/06/17 00:50 Urine RBC 10 - 15 /hpf (0-2) 08/06/17 00:50 Urine WBC 2 - 5 /hpf (0-6) 08/06/17 00:50 Ur Epithelial Cells 3 - 4 /hpf (0-5) 08/06/17 00:50 Urine Bacteria Few (NEG) 08/06/17 00:50 Urine Opiates Screen Positive (NEGATIVE) H 08/06/17 00:50 Urine Methadone Screen Negative (NEGATIVE) 08/06/17 00:50 Ur Barbiturates Screen Negative (NEGATIVE) 08/06/17 00:50 Ur Phencyclidine Scrn Negative (NEGATIVE) 08/06/17 00:50 Ur Amphetamines Screen Negative (NEGATIVE) 08/06/17 00:50 U Benzodiazepines Scrn Positive (NEGATIVE) H 08/06/17 00:50 U Oth Cocaine Metabols Negative (NEGATIVE) 08/06/17 00:50 U Cannabinoids Screen Negative (NEGATIVE) 08/06/17 00:50 Alcohol, Quantitative < 10 mg/dL (0-10) 08/05/17 23:13 - Hospital Course Hospital Course: This is a 46 year old female with PMHx HTN who presented after a syncopal episode. Patient states that she had surgery yesterday where silicone was "removed from the vagina." Patient states that she had silicone injections in the buttocks 14 years ago which have migrated towards the vagina recently. Patient states that she could not urinate after the procedure and was sitting in her bathtub. Patient states that due to her small bathroom which traps heat, she felt hot and walked to the kitchen afterwards. At that point, she felt a numbness sensation which started on top of her head and travelled down to the feet. Patient states that she felt cold afterwards and collapsed. Per patient, her partner caught her before she fell and then called the ambulance. Patient is unaware how long she was unconscious for. Patient states that she had a similar syncopal episode in the past in the bathroom in the hospital which also happened to be after another surgical procedure. Patient was able to urinate after coming to the ED. She denied at the time any symptoms including fever, chills, lightheadedness, dizziness, chest pain, dyspnea, abdominal pain, dysuria. Patient is currently on her period. Cardiology and Neurology were consulted for further evaluation. As per neurology patient had a vasovagal episode which required no further workup. Echocardiogram and carotid US were ordered. Carotid US revealed bilateral stenosis of 18% which required no further intervention at this time. Echcardiogram was not performed however patient decided that she would rather get this done outpatient with her primary care physician Dr. Lindsey Wilson. Discussed the case with Dr. Garrido (Cardiology) who believed no fruther work up was necessary from a cardiac standpoint as episode was vasovagal. Patient was also noted to have anemia on labs; patient states she is aware and desires to have an anemia workup done on an outpatient basis with her PMD. Discussed with her that colonoscopy would be beneficial consider her age and anemia. Patient states as far as her jaun drains she is continuing to check and record output for her surgeon. As per initial nuring assessment J.P x2 intact to perineal area draining sanguinous fluid. Patient refusing to allow nurse to view perineal sutures. Towards end of hospital visit patient refused to have her jaun drains assessed. Patient was in agreement with plan to discharge and continue with her medications she was prescribed for her post op procedure done elsewhere. Case discussed with Dr. Jo Nelson PGY1 Discharge Exam - Head Exam Head Exam: ATRAUMATIC, NORMOCEPHALIC - Eye Exam Eye Exam: EOMI, Normal appearance - ENT Exam ENT Exam: Normal Exam - Neck Exam Neck exam: Full Rom, Normal Inspection - Respiratory Exam Respiratory Exam: Clear to PA & Lateral, NORMAL BREATHING PATTERN. absent: Rhonchi, Wheezes - Cardiovascular Exam Cardiovascular Exam: REGULAR RHYTHM, +S1, +S2 - GI/Abdominal Exam GI & Abdominal Exam: Normal Bowel Sounds, Unremarkable - Extremities Exam Extremities exam: full ROM, normal inspection - Neurological Exam Neurological exam: Alert, CN II-XII Intact, Oriented x3 - Psychiatric Exam Psychiatric exam: Normal Mood - Skin Skin Exam: Intact, Normal Color, Warm Discharge Plan - Follow Up Plan Condition: GOOD Disposition: HOME/ ROUTINE Instructions: Syncope (Fainting), Syncope (Fainting) (DC), Vasovagal Response ( DC) Additional Instructions: Verónica, thank you for letting us take care of you today. Your provider was Dr. Osorio and you were treated for syncope. The emergency medical care you received today was directed at your acute symptoms. If you were prescribed any medication, please fill it and take as directed. It may take several days for your symptoms to resolve. Return to the Emergency Department if your symptoms worsen, do not improve, or if you have any other problems. Please contact your doctor or call one of the physicians/clinics you have been referred to that are listed on the Patient Visit Information form that is included in your discharge packet. Bring any paperwork you were given at discharge with you along with any medications you are taking to your follow up visit. Our treatment cannot replace ongoing medical care by a primary care provider outside of the emergency department. 1.As we discussed with you the test remaining to be performed is your echocardiogram which will be done tomorrow however since you prefer to leave today please follow up with your primary care physician Dr. Lindsey Wilson for an outpatient echocardiogram as we discussed. 2. Please continue to measure and record your JAUN drain output for your surgeon regarding your post op status 3.Your blood results reveal anemia, please follow up with Dr. Wilson regarding this finding as well for GI referral for possible colonoscopy. 4.If any symptoms continue or return do not hesitate to go to the nearest emergency department. Thank you for allowing the [facility] team to be part of your care today. If you had an X-Ray or CT scan: A Radiologist will review the ED reading if any change in treatment is needed we will contact you. If you had a blood, urine, or wound culture: It will take several days for the results, if any change in treatment is needed we will contact you. If you had an STI test: It will take 48 hours for the results. Please call after 1 week if you have not heard back. Referrals: Lindsey Wilson MD [Primary Care Provider] - <Naomy Osorio - Last Filed: 08/07/17 08:08> Provider - Provider Date of Admission: 08/06/17 01:31 Attending physician: Naomy Osorio MD Primary care physician: Lindsey Wilson MD Hospital Course - Lab Results Lab Results: Most Recent Lab Values WBC 7.8 10^3/ul (4.5-11.0) D 08/06/17 05:30 RBC 3.51 10^6/uL (3.5-6.1) 08/06/17 05:30 Hgb 9.7 g/dL (12.0-16.0) L D 08/06/17 05:30 Hct 30.2 % (36.0-48.0) L 08/06/17 05:30 MCV 86.0 fl (80.0-105.0) 08/06/17 05:30 MCH 27.6 pg (25.0-35.0) 08/06/17 05:30 MCHC 32.1 g/dl (31.0-37.0) 08/06/17 05:30 RDW 14.1 % (11.5-14.5) 08/06/17 05:30 Plt Count 212 10^3/uL (120.0-450.0) 08/06/17 05:30 MPV 11.6 fl (7.0-11.0) H 08/06/17 05:30 Gran % 72.4 % (50.0-68.0) H 08/06/17 05:30 Lymph % (Auto) 19.8 % (22.0-35.0) L 08/06/17 05:30 [place] % (Auto) 6.9 % (1.0-6.0) H 08/06/17 05:30 Eos % (Auto) 0.6 % (1.5-5.0) L 08/06/17 05:30 Baso % (Auto) 0.3 % (0.0-3.0) 08/06/17 05:30 Gran # 5.63 (1.4-6.5) 08/06/17 05:30 Lymph # (Auto) 1.5 (1.2-3.4) 08/06/17 05:30 [place] # (Auto) 0.5 (0.1-0.6) 08/06/17 05:30 Eos # (Auto) 0.1 (0.0-0.7) 08/06/17 05:30 Baso # (Auto) 0.02 K/mm3 (0.0-2.0) 08/06/17 05:30 PT 12.9 SECONDS (9.4-12.5) H 08/05/17 23:13 INR 1.13 (0.93-1.08) H 08/05/17 23:13 APTT 25.1 Seconds (25.1-36.5) 08/05/17 23:13 Sodium 139 mmol/L (132-148) 08/06/17 05:30 Potassium 3.9 mmol/L (3.6-5.0) 08/06/17 05:30 Chloride 105 mmol/L (98-107) 08/06/17 05:30 Carbon Dioxide 28 mmol/L (21-33) 08/06/17 05:30 Anion Gap 10 (10-20) 08/06/17 05:30 BUN 15 mg/dL (7-21) 08/06/17 05:30 Creatinine 0.7 mg/dl (0.7-1.2) 08/06/17 05:30 Est GFR ( Amer) > 60 08/06/17 05:30 Est GFR (Non-Af Amer) > 60 08/06/17 05:30 Random Glucose 108 mg/dL (70-110) 08/06/17 05:30 Calcium 8.2 mg/dL (8.4-10.5) L 08/06/17 05:30 Phosphorus 3.1 mg/dL (2.5-4.5) 08/06/17 05:30 Magnesium 1.9 mg/dL (1.7-2.2) 08/06/17 05:30 Total Bilirubin 0.1 mg/dL (0.2-1.3) L 08/06/17 05:30 AST 25 U/L (14-36) 08/06/17 05:30 ALT 23 U/L (7-56) 08/06/17 05:30 Alkaline Phosphatase 63 U/L (38-126) 08/06/17 05:30 Lactate Dehydrogenase 555 U/L (333-699) 08/05/17 23:13 Total Creatine Kinase 113 U/L (35-230) 08/05/17 23:13 Troponin I < 0.01 ng/mL 08/06/17 12:45 Total Protein 5.7 g/dL (5.8-8.3) L 08/06/17 05:30 Albumin 2.9 g/dL (3.0-4.8) L 08/06/17 05:30 Globulin 2.8 gm/dL 08/06/17 05:30 Albumin/Globulin Ratio 1.0 (1.1-1.8) L 08/06/17 05:30 TSH 3rd Generation 1.36 mIU/mL (0.46-4.68) 08/05/17 23:13 Urine Color Yellow (YELLOW) 08/06/17 00:50 Urine Appearance Cloudy (CLEAR) 08/06/17 00:50 Urine pH 6.0 (4.7-8.0) 08/06/17 00:50 Ur Specific [place] 1.025 (1.005-1.035) 08/06/17 00:50 Urine Protein 100 mg/dL (<30 mg/dL) H 08/06/17 00:50 Urine Glucose (UA) Negative mg/dL (NEGATIVE) 08/06/17 00:50 Urine Ketones Negative mg/dL (NEGATIVE) 08/06/17 00:50 Urine Blood Large (NEGATIVE) H 08/06/17 00:50 Urine Nitrate Negative (NEGATIVE) 08/06/17 00:50 Urine Bilirubin Negative (NEGATIVE) 08/06/17 00:50 Urine Urobilinogen 0.2 E.U./dL (<1 E.U./dL) 08/06/17 00:50 Ur Leukocyte Esterase Small [place]/uL (NEGATIVE) H 08/06/17 00:50 Urine RBC 10 - 15 /hpf (0-2) 08/06/17 00:50 Urine WBC 2 - 5 /hpf (0-6) 08/06/17 00:50 Ur Epithelial Cells 3 - 4 /hpf (0-5) 08/06/17 00:50 Urine Bacteria Few (NEG) 08/06/17 00:50 Urine Opiates Screen Positive (NEGATIVE) H 08/06/17 00:50 Urine Methadone Screen Negative (NEGATIVE) 08/06/17 00:50 Ur Barbiturates Screen Negative (NEGATIVE) 08/06/17 00:50 Ur Phencyclidine Scrn Negative (NEGATIVE) 08/06/17 00:50 Ur Amphetamines Screen Negative (NEGATIVE) 08/06/17 00:50 U Benzodiazepines Scrn Positive (NEGATIVE) H 08/06/17 00:50 U Oth Cocaine Metabols Negative (NEGATIVE) 08/06/17 00:50 U Cannabinoids Screen Negative (NEGATIVE) 08/06/17 00:50 Alcohol, Quantitative < 10 mg/dL (0-10) 08/05/17 23:13 Attending/Attestation - Attestation I have personally seen and examined this patient.: Yes I have fully participated in the care of the patient.: Yes I have reviewed all pertinent clinical information, including history, physical exam and plan: Yes Notes (Text): 08/06/17 46 year old female with past medical history of hypertension and recent cosmetic surgery (silicone removal) who prsented with syncopal episode while in bathroom. Likely vasovagal. CT head was negative for acute findings. Carotid dopplers were unremarkable. Serial cardiac enzymes were negative. She was seen by neurology with no further recommendations. Patient is discharged home to follow up with her pmd for outpatient echocardiogram and workup for anemia. Follow up with surgeon for post op drain care. Naomy Osorio MD Hospitalist.
== END 2017-08-06 16:46 | disposition home or self-care (01) ==
LOC: ED 22:43 → ERH 08-06 01:31 → 2RNO 08-06 03:44
PROVIDERS: ADMIT Internal Medicine; ATTEND Internal Medicine
DX: R55 Syncope and collapse (principal); I10 Essential (primary) hypertension; D64.9 Anemia, unspecified; Z79.82 Long term (current) use of aspirin; Z87.442 Personal history of urinary calculi; Z88.0 Allergy status to penicillin; Z88.2 Allergy status to sulfonamides; Z80.0 Family history of malignant neoplasm of digestive organs; Z82.3 Family history of stroke
CPT/HCPCS: 36415; 70450; 80053; 80320; 80324; 80345; 80346; 80349; 80353; 80358; 80361; 81001; 82550; 83615; 83735; 83992; 84100; 84443; 84484; 85025; 85610; 85730; 87040; 87086; 93005; 93880; 96365; 99285; G0378; J3475